=== PATIENT | female | born 1980 | race Caucasian/White ===

== ENCOUNTER 2017-04-03 16:43 | Emergency (ER) | payer OTHER ==
[~2017-04-03] VITALS: Ht 170.2 cm; Wt 99.8 kg
[2017-04-03 17:20] LABS: URINE BILIRUBIN NEGATIVE (Negative); URINE BLOOD 1+ (Negative); URINE COLOR YELLOW; URINE GLUCOSE-RANDOM* 3+ (Negative); URINE KETONES 1+ (Negative); URINE NITRITE NEGATIVE (Negative); URINE PROTEIN (DIPSTICK) NEGATIVE (Negative); URINE UROBILINOGEN 0.2 E.U./dl (0.2-1.0)
[2017-04-03 17:30] LABS: SQUAMOUS >10 Many /LPF (0-3)
[2017-04-03 17:31] LABS: BACTERIA >30 Many /HPF (None Seen); URINE RBC 3-10 Few /HPF (0-2)
[2017-04-03 17:33] LABS: CASTS None Seen /LPF (None Seen); CRYSTALS None Seen /LPF (None Seen); URINE WBC 6-15 Few /HPF (0-5)
[2017-04-03] MEDS ORDERED: CLOTRIMAZOLE 1%15 G1 TOP (18:20)
[2017-04-03] MEDS ORDERED: BACTRIM DS TAB1 EACH PO (18:20)
[2017-04-03] MEDS ORDERED: DIFLUCAN200 MG PO (18:20)
[2017-04-03] MEDS ORDERED: PHENAZOPYRIDIN200 M2 PO (18:22)
[2017-04-03 18:37] VITALS: BP 124/79
[2017-04-04 23:13] LABS: CHLAMYDIA TRACHOMATIS-PCR Negative (Negative); NEISSERIA GONORRHEA-PCR Negative (Negative)
== END 2017-04-03 18:20 | disposition home or self-care (01) ==
LOC: ER 16:43
PROVIDERS: Physician Assistant
DX: N39.0 Urinary tract infection, site not specified (principal); B37.2 Candidiasis of skin and nail; N89.8 Other specified noninflammatory disorders of vagina; F17.210 Nicotine dependence, cigarettes, uncomplicated; F10.99 Alcohol use, unspecified with unspecified alcohol-induced disorder; Z88.8 Allergy status to other drugs, medicaments and biological substances